=== PATIENT | female | born 1990 | race African-American/Black ===

== ENCOUNTER 2017-02-04 04:29 | Inpatient (IN) ==
[2017-02-04] MEDS ORDERED: CITRIC ACID/SODIUM CITRATE 30 ML UDCUP PO ONE (04:39)
[2017-02-04] MEDS ORDERED: ceFAZolin 2,000 MG in PREMIX 1 EACH IV ONE (04:39)
[2017-02-04] MEDS ORDERED: FAMOTIDINE 20 MG/2 ML VIAL IV ONE (04:39)
[2017-02-04] MEDS ORDERED: OXYTOCIN/LR 30 UNIT/1,000 ML BAG IV ONE ×2 (04:44→04:48)
[2017-02-04] MEDS ORDERED: OXYTOCIN 10 UNIT/ML VIAL IM PRN ×2 (04:46→04:56)
[2017-02-04] MEDS ORDERED: ceFAZolin 2,000 MG in PREMIX 1 EACH IV PRN (04:53)
[2017-02-04] MEDS: LACTATED RINGERS 1,000 ML IV SCH ×3 (04:55→20:00)
[2017-02-04] MEDS ORDERED: FAMOTIDINE 20 MG/2 ML VIAL IV PRN (04:59)
[2017-02-04] MEDS ORDERED: CITRIC ACID/SODIUM CITRATE 30 ML UDCUP PO PRN (05:00)
[2017-02-04] MEDS ORDERED: LACTATED RINGERS 1,000 ML IV SCH ×2 (05:00→07:30)
[2017-02-04 05:08] LABS: Basophils % 0.3 % (0.0-0.8); Eosinophils # 0.1 10*3/uL (0.0-0.87); Eosinophils % 0.6 % (0.00-10.9); Hematocrit 34.8 VOL% (35.7-47.0); Hemoglobin 11.2 GM/DL (12.0-16.0); Immature Granulocytes % 0.5 %; Immature Granulocytes Absolute 0.07 #; Lymphocytes # 2.3 10*3/uL (1.4-4.0); Lymphocytes % 17.1 % (21.3-54.2); Mean Corpuscular HGB Conc 32.2 GM/DL (32-36); Mean Corpuscular Hemoglobin 28 PG (27-34); Mean Corpuscular Volume 87.2 FL (87-102); Monocytes % 7.2 % (1.7-12.7); Neutrophils # 10.1 10*3/uL (1.4-7.4); Neutrophils % 74.3 % (38.7-73.9); Platelet Count 266 T/CUMM (130-400); Red Blood Count 3.99 MC/CUMM (3.8-5.5); White Blood Count 13.7 T/CUMM (4-12)
[2017-02-04] MEDS ORDERED: ONDANSETRON 4 MG/2 ML VIAL IV PRN (05:09)
[2017-02-04] MEDS ORDERED: TERBUTALINE 1 MG/1 ML VIAL SUBCUT PRN (05:09)
[2017-02-04] MEDS ORDERED: MEPERIDINE 50 MG/1 ML VIAL IV PRN (05:09)
[2017-02-04 05:45] LABS: Albumin 2.9 G/DL (3.4-5.0); Bilirubin,Total 0.4 MG/DL (0.2-1.0); Calcium 9.1 MG/DL (8.5-10.1); Osmolality,Calculated 274.5 MOS/KG (273-304); Potassium 4.2 MMOL/L (3.5-5.1); Total Protein 6.8 G/DL (6.4-8.3)
[2017-02-04] MEDS ORDERED: PROMETHAZINE 25 MG/1 ML VIAL IM ONE (07:15)
[2017-02-04] MEDS ORDERED: diphenhydrAMINE 50 MG/1 ML VIAL IV PRN (07:15)
[2017-02-04] MEDS ORDERED: hydrOXYzine HCL 25 MG/1 ML VIAL IM PRN (07:15)
[2017-02-04] MEDS ORDERED: PHENYLEPHRINE 1 MG/10 ML SYRINGE IV ONE (08:41)
[2017-02-04 09:42] LABS: Cord Arterial Blood HCO3 28.3 MMOL/L
[2017-02-04 09:44] LABS: Cord Venous Blood HCO3 24.5 MMOL/L; Cord Venous Blood PCO2 45.8 MMHG
[2017-02-04] MEDS ORDERED: SIMETHICONE CHEW 80 MG TABLET PO PRN (10:02)
[2017-02-04] MEDS ORDERED: RHO(D) IMMUNE GLOBULIN 300 MCG SYRINGE IM ONE (10:02)
[2017-02-04] MEDS ORDERED: OXYTOCIN/LR 20 UNIT/1,000 ML BAG IV ONE (10:02)
[2017-02-04] MEDS ORDERED: MAGNESIUM HYDROXIDE SUSP 30 ML UDCUP PO PRN (10:02)
[2017-02-04] MEDS ORDERED: ACETAMINOPHEN 325 MG TABLET PO PRN (10:02)
[2017-02-04] MEDS ORDERED: IBUPROFEN 800 MG TABLET PO PRN (10:02)
[2017-02-04] MEDS ORDERED: MORPHINE 10 MG/10 ML VIAL ONE (10:07)
--- NOTE | 2017-02-04 12:03 | Anesthesia Post-Op ---
Anesthesia Post OP - Post Ansesthetic Evaluation Patient seen in post op: Yes Resp: within normal limits CV: within normal limits Mental: within normal limits Temp: within normal limits Brqd-[id number]-[id number]: within normal limits Nausea and Vomiting: within normal limits Pain: within normal limits
[2017-02-04] MEDS: MEPERIDINE 25 MG/1 ML VIAL IV PRN ×2 (14:02→21:12)
[2017-02-04] MEDS: ONDANSETRON 4 MG/2 ML VIAL IV PRN ×2 (14:02→21:13)
[2017-02-04] MEDS: METOCLOPRAMIDE 10 MG/2 ML VIAL IV SCH (15:15)
[2017-02-04 19:28] LABS: Basophils % 0.3 % (0.0-0.8); Eosinophils % 0.2 % (0.00-10.9); Hematocrit 31.2 VOL% (35.7-47.0); Hemoglobin 10.1 GM/DL (12.0-16.0); Immature Granulocytes % 0.6 %; Immature Granulocytes Absolute 0.09 #; Lymphocytes # 1.6 10*3/uL (1.4-4.0); Lymphocytes % 11.3 % (21.3-54.2); Mean Corpuscular HGB Conc 32.4 GM/DL (32-36); Mean Corpuscular Hemoglobin 29 PG (27-34); Mean Corpuscular Volume 89.1 FL (87-102); Mean Platelet Volume 10.8 FL (9.6-12.0); Neutrophils # 11.6 10*3/uL (1.4-7.4); Neutrophils % 80.6 % (38.7-73.9); Platelet Count 216 T/CUMM (130-400); Red Cell Distribution Width 16.2 % (9.3-17.3); White Blood Count 14.4 T/CUMM (4-12)
[2017-02-05] MEDS: DOCUSATE SODIUM 100 MG CAPSULE PO SCH ×3 (00:34→20:47)
[2017-02-05] MEDS: LACTATED RINGERS 1,000 ML IV SCH ×2 (03:40→11:48)
[2017-02-05] MEDS: METOCLOPRAMIDE 10 MG/2 ML VIAL IV SCH ×4 (06:57→23:00)
[2017-02-05] MEDS: MULTIVITAMIN (PRENATAL) TABLET PO SCH (08:54)
--- NOTE | 2017-02-05 14:44 | OB/GYN Progress Note ---
Assessment and Plan (1) Status post repeat low transverse section Status: Acute Assessment and plan: Initiate routine postop orders Current Visit: Yes (2) Previous section Status: Acute Current Visit: Yes [employer] SUPERVISOR - PN: Subj Interval history: Stable with no complaints. Bonding well with infant Exam [employer] SUPERVISOR - Constitutional Vitals: Vital Signs Temp Pulse Resp BP Pulse Ox 02/05/17 12:00 97.8 F 93 H 20 129/64 98 02/05/17 11:53 97.8 F 93 H 20 129/64 98 02/05/17 08:00 99 F 98 H 20 137/81 95 02/05/17 04:00 97.4 F L 85 18 139/84 95 02/05/17 02:00 18 02/05/17 00:00 97.7 F 80 18 151/92 97 02/04/17 20:00 97.9 F 83 18 134/69 99 02/04/17 15:56 97.1 F L 76 18 137/81 91 L 02/04/17 14:45 78 18 134/77 93 L General appearance: no acute distress - Antepartum / Post Post Exam Breast: bilateral: normal Abdomen obstetrics: Present: bowel sounds normal Vagina: Present: normal moisture, discharge Uterus exam: Present: enlarged (Fundus firm and midline) Anus/Rectum: Present: normal perianal skin - Head Head exam: Present: normal inspection - Respiratory Respiratory exam: Present: clear to auscultation bilaterally - Cardiovascular Cardiovascular exam: Present: regular rate and rhythm - GI/Abdominal GI/Abdominal exam: Present: normal bowel sounds, soft - Extremities Exam Extremities exam: Present: normal inspection - Neurological Exam Neurological exam: Present: alert, oriented X3 - Psychiatric Psychiatric exam: Present: normal affect, normal mood - Skin Skin exam: Present: normal color, warm Results - Labs CBC & BMP: 02/04/17 19:18 02/04/17 04:57
[2017-02-06] MEDS: METOCLOPRAMIDE 10 MG/2 ML VIAL IV SCH (07:11)
[2017-02-06] MEDS ORDERED: METOCLOPRAMIDE 10 MG TABLET PO PRN (08:47)
--- NOTE | 2017-02-06 08:57 | Operative Note ---
Date of procedure: 02/04/17 Procedure: Preoperative diagnosis: 39 weeks gestation, repeat section Postoperative diagnosis: Same Anesthesia:[] Regional anesthesia Estimated blood loss: [] Less than 400 cc Surgeon: Dr. Morales Findings: [] Male infant, 8 lbs. 5 oz., Apgars are 9 9 Complications: None Procedure: Low transverse section The patient was taken to the operating suite heart tones were obtained prior to and after regional anesthesia was obtained. She was placed in supine position her abdomen was prepped and draped in usual manner for major abdominal surgery. Through an abdominal incision the skin, subcutaneous, fascial layer and peritoneal the abdomen was entered. The bladder flap was created and a low transverse incision was made.. Fluid was clear and normal amount X, Apgars, the placenta was delivered and sent to lab for further evaluation. Injected with intrauterine Pitocin. The first layer of the uterus was closed with #1 Vicryl in a continuous locking manner. Close to imbricate the first layer with #1 Vicryl. The peritoneum was approximated with #2-0 Vicryl.[] All the last sponges and instruments were accounted for -2.) #2-0 Vicryl. Fascia was approximated with #0-0 Maxon.. The skin was approximated with murphy. She tolerated procedure well and was taken to recovery room in stable condition. Surgeon / Physician: Mynor Morales Results - Labs CBC & BMP: 02/04/17 19:18 02/04/17 04:57 Discharge Plan - Discharge Medications New HYDROcodone/ACETAMIN 5-325 [[place] 5-325] 1 tablet PO Q4H #20 tablet No Action Multivitamin () [ Vitamin] 1 tablet PO DAILY MDD one tab - Follow Up or Referral Follow Up: Mynor Morales MD [Primary Care Provider] - - Forms/Instructions Instructions: Section (DC), Perineal Care (DC), Postoperative Bleeding (DC)
[2017-02-06] MEDS: DOCUSATE SODIUM 100 MG CAPSULE PO SCH (08:58)
--- NOTE | 2017-02-06 08:58 | Progress Note ---
Family Medicine PN Sub Interval history: Postop day #2, Patient is major complains of gas, no excessive vaginal bleeding, no shortness of breath or chest pain Abdomen slightly distended, incision sites intact Extremities well with no limits neurologic grossly intact Assessment and plan Postop day #2 possible discharge today if this patient has adequate bowel movement or gas is relieved. If not she will be discharged in a.m. Exam (Progress Note) - Constitutional Vitals: Period Temp Pulse Resp BP Sys/Aviles Pulse Ox Last 24 Hr 96.8 F-98.9 F 79-98 18-20 129-156/64-90 97-99 Results - Labs CBC & BMP: 02/04/17 19:18 02/04/17 04:57 Quality Measures - VTE Contraindication to Pharmacological VTE Prophylaxis: Clinical assessment deems Pt at low risk, no prophalaxis needed Specialty Discharge - Follow Up or Referrals Follow up with: Mynor Morales MD [Primary Care Provider] -
[2017-02-06] MEDS: MULTIVITAMIN (PRENATAL) TABLET PO SCH (08:59)
[2017-02-06] MEDS ORDERED: BISACODYL 10 MG SUPP RECTAL PRN (08:59)
--- NOTE | 2017-02-06 09:02 | Discharge Summary ---
Hospital Course - Hospital Course Hospital Course: Status post section postop day #2 Possible discharge today Patient complains of gas however I will receive Reglan, and Dulcolax suppository. If her symptoms are resolved she will be discharged today in follow-up her office approximately 2 weeks Abdomen soft slightly distended incision sites intact Extremities well with no limits neurologic grossly intact Assessment and plan Discharge in a.m. follow-up in our office 2 weeks Specialty Discharge - Follow Up or Referrals Follow up with: Mynor Morales MD [Primary Care Provider] - Discharge Plan - Discharge Data Condition at Discharge: Stable Discharge Diet: advance to your usual diet Activity: resume usual activities as tolerated Hygiene: may shower Weight Bearing at Discharge: weight bear as tolerated Driving: not until seen by doctor Contact your physician if you experience:: fever over 101, Bleeding - Discharge Medications New HYDROcodone/ACETAMIN 5-325 [[place] 5-325] 1 tablet PO Q4H #20 tablet HYDROcodone/ACETAMIN 5-325 [[place] 5-325] 2 tablet PO Q6H PRN #30 tablet PRN Reason: Pain Severe (8-10) Ibuprofen Tab [Motrin Tab] 800 mg PO Q8H PRN #30 tablet PRN Reason: Pain Severe (8-10) Metoclopramide Tab [Reglan Tab] 10 mg PO Q8H PRN #10 tablet PRN Reason: Constipation No Action Multivitamin () [ Vitamin] 1 tablet PO DAILY MDD one tab - Follow Up or Referral Follow Up: Mynor Morales MD [Primary Care Provider] - - Forms/Instructions Instructions: Section (DC), Perineal Care (DC), Postoperative Bleeding (DC) Exam - Constitutional Vitals: Period Temp Pulse Resp BP Sys/Aviles Pulse Ox Last 24 Hr 96.8 F-98.9 F 79-98 18-20 129-156/64-90 97-99 DS: Provider Date of admission: 02/04/17 04:39 Primary care physician: Mynor Morales MD Attending physician on admission: Mynor Morales MD Consults: 02/04/17 04:39 Consult to Anesthesiology [CONS] Routine Consulting Provider: Reason for Anesthesiology: Pre-op Clearance 02/04/17 05:15 Consult to Dietitian [CONS] Routine Reason for Dietitian: Diet Recommendations 02/04/17 10:02 Consult to Poultryman [CONS] Routine Consult Poultryman: Breast Feeding Discharging clinician: Mynor Morales MD
[2017-02-06 11:36] VITALS: BP 145/81
== END 2017-02-06 14:25 | disposition home or self-care (01) | DRG 766 ==
LOC: N.LDOUT 04:29 → N.LD 04:31 → N.OB 13:02
PROVIDERS: ADMIT Obstetrics & Gynecology; ATTEND Obstetrics & Gynecology
PROC: LDCSECT (ICD-10-PCS; 2017-02-04 11:45)

== ENCOUNTER 2021-01-02 09:45 | Inpatient (IN) ==
[2021-01-02] MEDS ORDERED: ONDANSETRON 4 MG/2 ML VIAL IV PRN ×3 (10:09→17:45)
[2021-01-02] MEDS ORDERED: MEPERIDINE 50 MG/1 ML VIAL IV PRN (10:09)
[2021-01-02] MEDS ORDERED: ePHEDrine 50 MG/ML VIAL IV PRN (10:17)
[2021-01-02] MEDS ORDERED: hydrOXYzine HCL 25 MG/1 ML VIAL IM PRN (10:17)
[2021-01-02] MEDS ORDERED: diphenhydrAMINE 50 MG/1 ML VIAL IV PRN ×2 (10:17)
[2021-01-02] MEDS ORDERED: LACTATED RINGERS 1,000 ML IV PRN (10:17)
[2021-01-02] MEDS ORDERED: PROMETHAZINE 25 MG/1 ML VIAL IM PRN (10:17)
[2021-01-02 10:25] LABS: Basophils # 0.1 10*3/uL (0.0-0.2); Basophils % 0.6 % (0.0-0.8); Eosinophils # 0.1 10*3/uL (0.0-0.87); Eosinophils % 0.8 % (0.00-10.9); Hematocrit 32.9 VOL% (35.7-47.0); Hemoglobin 10.2 GM/DL (12.0-16.0); Immature Granulocytes % 0.8 %; Immature Granulocytes Absolute 0.08 #; Lymphocytes # 2.1 10*3/uL (1.4-4.0); Lymphocytes % 20.7 % (21.3-54.2); Mean Corpuscular Volume 88.4 FL (87-102); Mean Platelet Volume 10.6 FL (9.6-12.0); Monocytes % 6.6 % (1.7-12.7); Neutrophils % 70.5 % (38.7-73.9); Platelet Count 285 T/CUMM (130-400); Red Blood Count 3.72 MC/CUMM (3.8-5.5); Red Cell Distribution Width 15.8 % (9.3-17.3); White Blood Count 10.2 T/CUMM (4-12)
[2021-01-02] MEDS ORDERED: LACTATED RINGERS 1,000 ML IV SCH ×2 (10:30→18:00)
[2021-01-02 10:50] LABS: Albumin 2.9 G/DL (3.4-5.0); Bilirubin,Total 1.3 MG/DL (0.2-1.0); Calcium 9.2 MG/DL (8.5-10.1); Osmolality,Calculated 274.5 MOS/KG (273-304); Potassium 4.1 MMOL/L (3.5-5.1); Total Protein 7.6 G/DL (6.4-8.2)
[2021-01-02] MEDS ORDERED: FAMOTIDINE 20 MG/2 ML VIAL IV ONE (14:00)
[2021-01-02] MEDS ORDERED: OXYTOCIN 30 UNIT in DEXTROSE 5% LACTATED RINGERS 1,000 ML IV ONE (14:00)
[2021-01-02] MEDS ORDERED: OXYTOCIN 10 UNIT/ML VIAL IM ONE (14:00)
[2021-01-02] MEDS ORDERED: CITRIC ACID/SODIUM CITRATE 30 ML UDCUP PO ONE (14:00)
[2021-01-02] MEDS ORDERED: ceFAZolin 2,000 MG in PREMIX 1 EACH IV ONE (14:00)
[2021-01-02] MEDS ORDERED: OXYTOCIN/LR 20 UNIT/1,000 ML BAG IV ONE ×2 (15:00→17:45)
[2021-01-02] MEDS ORDERED: OXYTOCIN/LR 30 UNIT/1,000 ML BAG IV ONE (15:00)
[2021-01-02] MEDS ORDERED: ONDANSETRON 4 MG/2 ML VIAL ONE (15:39)
[2021-01-02] MEDS ORDERED: BUPIVACAINE SPINAL 0.75% 2 ML AMP SPINAL ONE (15:39)
[2021-01-02] MEDS ORDERED: PHENYLEPHRINE 1 MG/10 ML SYRINGE IV ONE (15:39)
[2021-01-02 16:50] LABS: Cord Arterial Blood HCO3 21.8 MMOL/L
[2021-01-02 16:53] LABS: Cord Venous Blood HCO3 22.4 MMOL/L; Cord Venous Blood PCO2 46.8 MMHG
[2021-01-02] MEDS ORDERED: OXYTOCIN/LR 20 UNIT/1,000 ML BAG IV STA (17:23)
[2021-01-02 17:30] LABS: Bacteria,Urine Occasional /HPF (Few); Bilirubin,Urine Negative (Negative); Blood, Urine Negative (Negative); Glucose,Urine (UA) Negative (Negative); Ketones,Urine 80 mg/dL (Negative); Mucus,Urine Many /LPF (Occasional); Nitrite,Urine Negative (Negative); Protein,Urine 30 MG/DL; RBC,Urine 2 /HPF (0-4); Squamous Epithelial Cell,Urine Occasional /HPF (0-10); Urine Appearance CLEAR (Clear); Urine Color Yellow (Yellow); Urine Specific Gravity 1.021 (1.001-1.035); Urine Urobilinogen < 2.0 EU/DL (0.2-1.0); WBC,Urine 1 /HPF (0-6)
[2021-01-02] MEDS ORDERED: RHO(D) IMMUNE GLOBULIN 300 MCG SYRINGE IM ONE (17:45)
[2021-01-02] MEDS ORDERED: MAGNESIUM HYDROXIDE SUSP 30 ML UDCUP PO PRN (17:45)
[2021-01-02] MEDS ORDERED: ACETAMINOPHEN 325 MG TABLET PO PRN (17:45)
[2021-01-02] MEDS ORDERED: ceFAZolin 1,000 MG in SYRINGE 1 EACH IV SCH (18:00)
[2021-01-02] MEDS: ACETAMINOPHEN 500 MG TABLET PO SCH (19:23)
[2021-01-02] MEDS: KETOROLAC 30 MG/1 ML VIAL IV SCH (19:23)
[2021-01-03 00:51] LABS: Basophils % 0.4 % (0.0-0.8); Eosinophils # 0.1 10*3/uL (0.0-0.87); Eosinophils % 0.5 % (0.00-10.9); Hematocrit 27.7 VOL% (35.7-47.0); Hemoglobin 8.4 GM/DL (12.0-16.0); Immature Granulocytes % 0.5 %; Immature Granulocytes Absolute 0.06 #; Lymphocytes # 1.7 10*3/uL (1.4-4.0); Lymphocytes % 15.7 % (21.3-54.2); Mean Corpuscular HGB Conc 30.3 GM/DL (32-36); Mean Corpuscular Volume 89.4 FL (87-102); Mean Platelet Volume 10.6 FL (9.6-12.0); Monocytes % 6.9 % (1.7-12.7); Platelet Count 232 T/CUMM (130-400); Red Cell Distribution Width 15.9 % (9.3-17.3)
[2021-01-03] MEDS: ACETAMINOPHEN 500 MG TABLET PO SCH ×2 (01:10→06:43)
[2021-01-03] MEDS: KETOROLAC 30 MG/1 ML VIAL IV SCH ×2 (01:11→06:44)
[2021-01-03] MEDS ORDERED: ceFAZolin 1,000 MG in SYRINGE 1 EACH IV SCH (07:00)
[2021-01-03] MEDS: DOCUSATE SODIUM 100 MG CAPSULE PO SCH ×3 (07:16→20:37)
[2021-01-03 07:29] LABS: Basophils % 0.4 % (0.0-0.8); Eosinophils # 0.1 10*3/uL (0.0-0.87); Eosinophils % 1.1 % (0.00-10.9); Hematocrit 26.2 VOL% (35.7-47.0); Hemoglobin 8.1 GM/DL (12.0-16.0); Immature Granulocytes % 0.7 %; Immature Granulocytes Absolute 0.07 #; Lymphocytes # 1.6 10*3/uL (1.4-4.0); Lymphocytes % 16.1 % (21.3-54.2); Mean Corpuscular HGB Conc 30.9 GM/DL (32-36); Mean Corpuscular Volume 88.5 FL (87-102); Mean Platelet Volume 10.4 FL (9.6-12.0); Monocytes % 8.5 % (1.7-12.7); Neutrophils % 73.2 % (38.7-73.9); Platelet Count 213 T/CUMM (130-400); Red Blood Count 2.96 MC/CUMM (3.8-5.5); Red Cell Distribution Width 15.8 % (9.3-17.3); White Blood Count 9.8 T/CUMM (4-12)
[2021-01-03 08:09] LABS: Eosinophils 3 % (0-10); Hypochromasia 1+; Lymphocytes 18 % (20-55); Microcytosis 1+; Platelet Estimate Adequate; Segmented Neutrophils 75 % (50-85); Total Cells Counted 100
[2021-01-03] MEDS: MULTIVITAMIN (PRENATAL) TABLET PO SCH (10:06)
[2021-01-03] MEDS: IBUPROFEN 800 MG TABLET PO PRN ×2 (10:07→20:16)
[2021-01-03] MEDS: SIMETHICONE CHEW 80 MG TABLET PO PRN (20:38)
[2021-01-04] MEDS ORDERED: BISACODYL 10 MG SUPP RECTAL PRN (03:58)
[2021-01-04] MEDS: IBUPROFEN 800 MG TABLET PO PRN (05:03)
[2021-01-04] MEDS: MULTIVITAMIN (PRENATAL) TABLET PO SCH (09:59)
[2021-01-04] MEDS: DOCUSATE SODIUM 100 MG CAPSULE PO SCH (09:59)
[2021-01-04] MEDS: SIMETHICONE CHEW 80 MG TABLET PO PRN (09:59)
[2021-01-04] MEDS ORDERED: DIPH/TET/ACEL PERT BOOSTER VACCINE 0.5 ML VIAL IM ONE (10:33)
[2021-01-04 11:11] VITALS: BP 126/77
== END 2021-01-04 12:30 | disposition home or self-care (01) | DRG 540 ==
LOC: N.LD 09:45 → N.OB 21:30
PROVIDERS: ADMIT Obstetrics & Gynecology; ATTEND Obstetrics & Gynecology

== ENCOUNTER 2021-01-16 22:20 | Observation (INO) ==
[2021-01-17 01:33] LABS: Basophils # 0.1 10*3/uL (0.0-0.2); Basophils % 0.7 % (0.0-0.8); Eosinophils # 0.5 10*3/uL (0.0-0.87); Eosinophils % 5.3 % (0.00-10.9); Hematocrit 32.3 VOL% (35.7-47.0); Hemoglobin 9.7 GM/DL (12.0-16.0); Immature Granulocytes % 0.3 %; Immature Granulocytes Absolute 0.03 #; Lymphocytes # 2.6 10*3/uL (1.4-4.0); Mean Corpuscular Volume 90.7 FL (87-102); Mean Platelet Volume 9.6 FL (9.6-12.0); Monocytes % 6.9 % (1.7-12.7); Neutrophils % 59.8 % (38.7-73.9); Platelet Count 459 T/CUMM (130-400); Red Blood Count 3.56 MC/CUMM (3.8-5.5); Red Cell Distribution Width 16.8 % (9.3-17.3); White Blood Count 9.6 T/CUMM (4-12)
[2021-01-17 03:38] LABS: Bilirubin,Urine Negative (Negative); Blood, Urine Moderate mg/dL (Negative); Glucose,Urine (UA) Negative (Negative); Ketones,Urine Negative (Negative); Mucus,Urine Occasional /LPF (Occasional); Nitrite,Urine Negative (Negative); Protein,Urine Negative; RBC,Urine 2 /HPF (0-4); Renal Epithelial Cells,Urine Occasional /HPF (<1); Squamous Epithelial Cell,Urine Occasional /HPF (0-10); Urine Appearance CLEAR (Clear); Urine Color Yellow (Yellow); Urine Specific Gravity 1.014 (1.001-1.035)
[2021-01-17] MEDS ORDERED: BISACODYL 10 MG SUPP RECTAL PRN (06:49)
[2021-01-17] MEDS ORDERED: ONDANSETRON 4 MG/2 ML VIAL IV PRN (06:49)
[2021-01-17] MEDS ORDERED: MAGNESIUM HYDROXIDE SUSP 30 ML UDCUP PO PRN (06:49)
[2021-01-17] MEDS ORDERED: ACETAMINOPHEN 325 MG TABLET PO PRN (06:49)
[2021-01-17] MEDS ORDERED: IBUPROFEN 800 MG TABLET PO PRN (06:49)
[2021-01-17] MEDS ORDERED: LACTATED RINGERS 1,000 ML IV SCH (07:30)
[2021-01-17] MEDS ORDERED: DOCUSATE SODIUM 100 MG CAPSULE PO SCH (09:00)
[2021-01-17 11:32] VITALS: BP 121/75
== END 2021-01-17 12:06 | disposition home or self-care (01) ==
LOC: N.EDINP 22:20 → N.ED 22:20 → N.3E 01-17 04:29
PROVIDERS: ADMIT Obstetrics & Gynecology; ATTEND Obstetrics & Gynecology